=== PATIENT | male | born 1985 | race Two or more races ===

== ENCOUNTER 2023-12-09 14:10 | Emergency (ER) | payer MEDICAID ==
[~2023-12-09] VITALS: Ht 170.2 cm; Wt 76.2 kg
[2023-12-09] MEDS ORDERED: ASPIRIN 325 MG TABLET ONE (14:27)
[2023-12-09] MEDS ORDERED: BENZOIN COMPOUND TINCT 60 ML BOTTLE ONE (14:31)
[2023-12-09] MEDS: IV NS 0.9% 500 ML BAG IV ONE (14:32)
[2023-12-09] MEDS: ASPIRIN 325 MG TABLET PO ONE (14:32)
[2023-12-09 14:37] LABS: BASOPHILS % (AUTO) 0.4 % (0.0-2.0); EOSINOPHILS # (AUTO) 0.2 K/uL (0.0-0.7); EOSINOPHILS % (AUTO) 2.2 % (0.0-6.0); HEMATOCRIT 47 % (39-51); HEMOGLOBIN 16.5 g/dL (13.5-17.5); LYMPHOCYTES # (AUTO) 3.2 K/uL (0.8-4.8); LYMPHOCYTES % (AUTO) 36.2 % (20.0-44.0); MEAN CORPUSCULAR HEMOGLOBIN 31 PG (26.0-33.0); MEAN CORPUSCULAR HGB CONC 35 g/dl (31.0-36.0); MEAN CORPUSCULAR VOLUME 88 fL (80-96); MONOCYTES # (AUTO) 0.5 K/uL (0.1-1.30); MONOCYTES % (AUTO) 6.1 % (2.0-12.0); NEUTROPHILS # (AUTO) 4.8 K/uL (1.8-8.9); NEUTROPHILS % (AUTO) 55.1 % (43.0-81.0); PLATELET COUNT (AUTO) 308 K/uL (150-450); RED BLOOD CELL COUNT(AUTO) 5.35 MIL/uL (4.5-6.0); RED CELL DISTRIBUTION WIDTH 13.2 % (11.5-15.0); WHITE BLOOD COUNT (AUTO) 8.8 K/uL (4.3-11.0)
[2023-12-09] MEDS ORDERED: MORPHINE SULFATE INJ 2 MG/ML DISP.SYRIN ONE (14:38)
[2023-12-09] MEDS ORDERED: CT SWABBABLE VALVE TRANS SET 1 EA INFUS.SET MC ONE (14:40)
[2023-12-09] MEDS: MORPHINE SULFATE INJ 2 MG/ML DISP.SYRIN IV ONE (14:40)
[2023-12-09] MEDS ORDERED: IOHEXOL-300 100 ML VIAL IV ONE (14:40)
[2023-12-09] MEDS ORDERED: IV NS 0.9% 250 ML IV ONE (14:40)
[2023-12-09 14:49] LABS: CALCIUM, SERUM 9.1 mg/dL (8.5-10.1); CARBON DIOXIDE 26 mmol/L (21-32); CHLORIDE 100 mmol/L (98-107); CREATININE 1.2 mg/dL (0.6-1.3); GLUCOSE 112 mg/dL (74-106); POTASSIUM 3.3 mmol/L (3.5-5.1); SODIUM SERUM 135 mmol/L (136-145); UREA NITROGEN, BLOOD 11 mg/dL (7-18)
[2023-12-09] MEDS: BENZOIN COMPOUND TINCT 60 ML BOTTLE MM ONE (14:49)
[2023-12-09 14:54] LABS: ALANINE AMINOTRANSFERASE 45 U/L (12-78); ALBUMIN 4.1 g/dL (3.4-5.0); ALKALINE PHOSPHATASE 104 U/L (46-116); ASPARTATE AMINOTRANSFERASE 39 U/L (15-37); BILIRUBIN,DIRECT 0.2 mg/dL (0.0-0.2); BILIRUBIN,TOTAL 1.1 mg/dL (0.2-1.0); TOTAL PROTEIN, SERUM 8.8 g/dL (6.4-8.2)
[2023-12-09] MEDS ORDERED: FAMOTIDINE/PF INJ 20 MG/2 ML VIAL IV ONE (16:03)
[2023-12-09] MEDS ORDERED: PANTOPRAZOLE 40 MG VIAL ONE (16:04)
[2023-12-09] MEDS ORDERED: MAG HYDROX/AL HYDROX/SIMETH 30 ML UDC ONE (16:04)
[2023-12-09] MEDS ORDERED: ONDANSETRON HCL/PF 4 MG/2 ML VIAL ONE (16:04)
[2023-12-09] MEDS: PANTOPRAZOLE 40 MG VIAL IV ONE (16:07)
[2023-12-09] MEDS: ONDANSETRON HCL/PF 4 MG/2 ML VIAL IVP ONE (16:07)
[2023-12-09] MEDS: IV NS 0.9% 1,000 ML BAG IV ONE (16:07)
[2023-12-09] MEDS: MAG HYDROX/AL HYDROX/SIMETH 30 ML UDC PO ONE (16:07)
[2023-12-09] MEDS: FAMOTIDINE/PF INJ 20 MG/2 ML VIAL IV ONE (16:07)
[2023-12-09] MEDS ORDERED: FAMO-131 PO (19:30)
[2023-12-09 19:31] LABS: APPEARANCE,URINE CLEAR (CLEAR); BILIRUBIN,URINE NEGATIVE (NEGATIVE); BLOOD, URINE NEGATIVE Ery/uL (NEGATIVE); COLOR,URINE YELLOW (YELLOW); KETONES,URINE NEGATIVE (NEGATIVE); LEUKOCYTE ESTERASE ,URINE NEGATIVE (NEGATIVE); NITRITE, URINE NEGATIVE (NEGATIVE); PH,URINE 6.5 (5.0-8.0); PROTEIN,URINE NEGATIVE (NEGATIVE); UGLUCOSE NEGATIVE (NEGATIVE); UROBILINOGEN,URINE 0.2 EU/dL (0.2)
[2023-12-09 19:33] LABS: AMPHETAMINE, URINE NEGATIVE (NEGATIVE); BARBITURATE, URINE NEGATIVE (NEGATIVE); BENZODIAZEPINE, URINE NEGATIVE (NEGATIVE); CANNABINOID, URINE NEGATIVE (NEGATIVE); COCCAINE, URINE NEGATIVE (NEGATIVE); OPIATE, URINE POSITIVE (NEGATIVE); PHENCYCLIDINE SCREEN,URINE NEGATIVE (NEGATIVE)
[2023-12-09 20:49] VITALS: BP 105/81; TEMP 98.5; O2SAT 100
== END 2023-12-09 20:49 | disposition home or self-care (01) ==
LOC: ER 14:16
DX: R07.9 Chest pain, unspecified (principal); K29.70 Gastritis, unspecified, without bleeding; R10.13 Epigastric pain
CPT/HCPCS: 99285; 71260; 96374; 96361; 96375; 71045; 93005 ×2; 74177; 85025; 80048; 80076; 85378; 36415; 84484 ×2; 86850; 80307; 81003; J3490; J2405; J7030; J7050; J7040; C9113; J2270; Q9967